=== PATIENT | female | born 1980 | race Caucasian/White ===

== ENCOUNTER → 2017-06-22 | Day surgery (SDC) | payer MEDICAID, OTHER ==
[~2017-06-22] VITALS: Ht 172.7 cm; Wt 132.8 kg
[~2017-06-22] MED LIST: CHLORHEXIDINE GLUCONATE 2 % 1 PACK (2 CLOTHS) TOPICAL PRN; CYCL10TA PO; CYMB60CA PO; FURO1TAB62 PO; HYDR-3516 PO; IMIT100T PO; INSULIN HUMAN REGULAR 1,000 UNITS/10 ML VIAL SQ PRN; LACTATED RINGER'S 1000 ML IV PRN; LIDOCAINE 1%/EPINEPHrine 1:100,000 SOLN 50 ML VIAL ONE; LURA40 PO; LYRI100C PO; METF500T PO; METO50TA PO; METOPROLOL TARTRATE 25 MG TAB PO PRN; MIDAZOLAM HCL 2 MG/2 ML VIAL ONE; MIRA0.5T PO; MORPHINE SULFATE 2 MG/ML INJ IV PRN; ONDANSETRON HCL 4 MG/2 ML VIAL IV PUSH PRN; POVIDONE IODINE 5% (ANTISEPSIS KIT) 4 APPLICATIONS EACH NARE PRN; PROC10TA PO; SERT-129 PO; SODIUM CHLORID 0.9% 500 ML IV PRN; VENTAER INH; VERA1TAB17 PO; ZONI100C2 PO; ceFAZolin 1,000 MG/NS 100 ML IV SCH; oxyCODONE/ACETAMINOPHEN 5 MG/325 MG TAB ONE; oxyCODONE/ACETAMINOPHEN 5 MG/325 MG TAB PO PRN
--- NOTE | 2017-06-22 12:32 | PD.OP ---
Operative Report Date of Surgery: Jun 22, 2017 Preoperative Diagnosis: overactive bladder Postoperative Diagnosis: Same Procedure: InterStim percutaneous sacral nerve stimulation test with fluoroscopic guidance for needle placement. Repeat of procedure the opposite side of the sacral nerve. Anesthesia: MAC Surgeon: Catalino Black Cmm Programmer(s): None Resident Surgeon: None Operation and Findings: 28-year-old female with history of overactive bladder symptoms who has failed anticholinergic and Botox therapy. Patient elected to undergo a trial of InterStim. Risk and benefits were discussed preoperatively and she is willing to proceed. The patient was properly identified and placed in the prone position. Pillows were placed under the lower abdomen to flatten the sacrum and under the shins to allow the toes to dangle freely. A ground pad was placed on the bottom the patient's foot and the long test stimulator cable was connected to the ground pad into the external test stimulator. The patient was prepped and draped in usual sterile fashion using the prep solution. The C-arm was moved into the AP position for 5 fluoroscopic mapping of the sacral region which included marking out the midline of the sacrum, SI joints, sciatic notches, medial foraminal borders and sacral foramen. Local ingestion with half percent Marcaine was administered in a foramen needle was placed in the 60 angle into the S3 foramen. The C-arm was then put into the lateral position to check the depth of the needle and identify placement within the proper foramen. Proper S3 needle position was confirmed by patient's sensation of stimulation, direct observation of the lifting of the perineum, and observation of plantar flexion of the great toe. The foramen needle stylette was removed and a percutaneous lead was inserted to proper depth using 3.5 and 5.0-lead markers. Lead placement was tested and confirmed by connecting the patient J hook to the top of the gyroscopic instrument tester and by fluoroscopic imaging. The needle was taken out over the lead. The above procedure was performed again on the opposite side and all the appropriate responses were again verified. The leads were connected to the short test stimulator cables and ground pads. The patient was cleaned off and the entire region was covered with a Tegaderm. EBL was minimal. Using the external test stimulator, the patient was programmed to optimum sensation via the lead and given instructions on utilizing the external test stimulator prior to discharge. At urinary diary will be kept until return appointment to the office to discuss results of this test stimulation. She tolerated the procedure well. Catalino Black DO Jun 22, 2017 12:32
[2017-06-22 13:14] VITALS: BP 116/83; PULSE 65; RESP 18; TEMP 97.1; O2SAT 98
--- NOTE | 2017-06-24 08:58 | EKG ---
Date Performed: 06/22/2017 Time Performed: 11:03:18 PTAGE: 36 years EKG: SINUS BRADYCARDIA NONSPECIFIC T-WAVE ABNORMALITY Compared to prior tracing no significant c hange BORDERLINE ECG PREVIOUS TRACING : 08/30/2015 07.31 DOCTOR: Too Mohan Interpretating Date/Time 06/24/2017 08:57:16
== END | disposition home or self-care (01) ==
LOC: HSDC 09:34
PROVIDERS: ATTEND Urology
DX: N39.41 Urge incontinence (principal); N32.81 Overactive bladder; R94.31 Abnormal electrocardiogram [ECG] [EKG]; R33.9 Retention of urine, unspecified
CPT/HCPCS: 00300; 64561; 76000; 93005; J0690; J2250; J3010; C1778

== ENCOUNTER → 2017-07-06 | Day surgery (SDC) | payer OTHER ==
[~2017-07-06] VITALS: Ht 174 cm; Wt 132.4 kg
[~2017-07-06] MED LIST changes: +BUPIVACAINE/EPINEPHRINE 0.25% 50 ML VIAL ONE; -LIDOCAINE 1%/EPINEPHrine 1:100,000 SOLN 50 ML VIAL ONE; +LIDOCAINE HCL 1% PF 5 ML SYRINGE OTHER ONE; -MIDAZOLAM HCL 2 MG/2 ML VIAL ONE; +ONDANSETRON HCL 4 MG/2 ML VIAL IV PUSH ONE; +PROPOFOL 500 MG/50 ML INJ 100 ML ONE; +STERILE WATER FOR INJECTION 20 ML VIAL ONE; +ceFAZolin INJ 1,000 MG VIAL ONE; -oxyCODONE/ACETAMINOPHEN 5 MG/325 MG TAB ONE; -oxyCODONE/ACETAMINOPHEN 5 MG/325 MG TAB PO PRN; +oxyCODONE/ACETAMINOPHEN 7.5 MG/325 MG TAB ONE; +oxyCODONE/ACETAMINOPHEN 7.5 MG/325 MG TAB PO PRN
--- NOTE | 2017-07-06 13:38 | PD.OP ---
Operative Report Date of Surgery: Jul 06, 2017 Preoperative Diagnosis: Overactive bladder with urinary incontinence Postoperative Diagnosis: Same Procedure: InterStim therapy full system implant Anesthesia: MAC Surgeon: Catalino Black Security Tech(s): None Resident Surgeon: None Operation and Findings: 36-year-old female with history of overactive bladder with urge incontinence admitted to undergo InterStim therapy full system Implant. Risk and benefits discussed preoperative she is willing to proceed. The patient was identified and placed in the prone position per the OR protocol. MAC anesthesia was administered. Pillows were placed under the lower abdomen to flatten the sacrum and under the shins to allow the toes to dangle freely. The patient was prepped and draped in usual sterile fashion. The C-arm was draped and moved into the AP position to provide fluoroscopic mapping of the sacral region which included marking out the midline of the sacrum, SI joints, sciatic notches, medial foramen borders and sacral foramina. The C-arm was moved to lateral position to image the area of the sacral promontory to the coccyx. Local injection with half percent Marcaine was administered. The foramen needle was introduced proximal and 2 cm above the sciatic notch and 2 cm lateral to the sacral midline, feeling for foraminal margins until the S3 foramen was identified and penetrated. The depth of the foramen needle was confirmed and adjusted fluoroscopically. Proper needle position was confirmed by patient identification of location of sensation, direct observation of the lifting of the perineum, and observation of plantar flexion of the great toe utilizing the external test stimulator. The foramen needle stylette was removed and a directional guide was placed and confirmed fluoroscopically. The foramen needle was removed. An incision was made peripherally to the directional guide through the fascial layer. The lead introducer sheath with dilator was placed over the directional guide and directed into the foramen to ensure the radiopaque marker of the lead introducer did not extend beyond the anterior edge of the sacrum. The dilator was unlocked and removed along the directional guide. The lead was then placed through the introducer sheath to the first white line. Position was checked fluoroscopically. The lead was then further introduced until 3 electrodes were visible below the sacrum. Each electrode was tested for location of patient sensation, visualization of arabella, and planter flexion of the great toe. After satisfactory positioning was confirmed, the introducer sheath was retracted under continuous fluoroscopy deploying lead tines into the presacral tissue. Further incision was made and the subcutaneous tissue posterior to the iliac crest and lateral to the sacrum. Blunt dissection was continued into the gluteal fascia was identified and hemostasis was achieved allowing for sufficient pocket for the node stimulator. The tunneling tool was straw was placed from the lead exit site subcutaneously to the incised pocket site. The lead was cleansed of bodily fluids and dried. The lead was inserted into the InterStim neurostimulator and the metal bands were aligned with the blue lead tip clearly visible in the distal portion of the neurostimulator header. The single set screw was tightened with a hex wrench. The neurostimulator was placed in the subcutaneous pocket with the etched identification side placed upwards and the excessively wrapped counterclockwise around the neurostimulator. The programming head was placed over the implanted neurostimulator and a sterile cover to ensure adequate lead connection and at the parameters were within normal limits. Impedance was confirmed to be within normal limits, greater than 50 and less than 4000. The wounds were irrigated with antibiotic solution and water and closed with 4-0 Monocryl subcuticular sutures. Counts were correct. Steri-Strips and gauze 4 x 4's were placed over the incision. EBL was minimal. The patient was transferred to the recovery room in stable condition. She'll follow up in 2 weeks to have a wound check at that time. Catalino Black DO Jul 06, 2017 13:37
--- NOTE | 2017-07-06 14:11 | RADRPT ---
EXAM DATE/TIME: 07/06/2017 13:11 [facility] COMPARISON: No previous studies available for comparison. INDICATIONS : Interstim placement. MEDICAL HISTORY : None. SURGICAL HISTORY : None. ENCOUNTER: Initial ACUITY: 1 day PAIN SCORE: Non-responsive. LOCATION: pelvis FINDINGS: Two-view examination of the sacrum demonstrates no evidence of fracture or malalignment. The sacral ala and foramina appear symmetric and intact. There is a stimulator lead injected over the mid sacru m. The prevertebral soft tissues are within normal limits. CONCLUSION: Stimulator lead projected over the mid sacrum. Ken Malave MD on July 06, 2017 at 14:05 Board Certified Radiologist. This report was verified electronically.
[2017-07-06 14:20] VITALS: BP 125/76; PULSE 69; RESP 18; TEMP 97.5; O2SAT 97
== END | disposition home or self-care (01) ==
LOC: HSDC 07:57
PROVIDERS: ATTEND Urology
DX: N39.41 Urge incontinence (principal); N32.81 Overactive bladder
CPT/HCPCS: 00630; 64581; 72220; 76000; C1767; C1778; C1787; J0690; J7120; J2405